=== PATIENT | male | born 1970 | race Caucasian/White ===

== ENCOUNTER → 2017-05-26 | Outpatient (CLI) | payer OTHER ==
[~2017-05-26] MED LIST: ASPI81TA28 PO; CETI10TA84 PO; LOSA50TA6 PO; METO100T14 PO
[2017-05-26 13:52] LABS: ALT/SGPT 28 U/L (12-78); BLOOD UREA NITROGEN 13 mg/dl (7-18); BUN/CREATININE RATIO 14.1 (10-20); CALCIUM 8.3 mg/dl (8.5-10.1); CARBON DIOXIDE 29 mmol/L (21-32); CHLORIDE 111 mmol/L (98-107); CREATININE 0.91 mg/dl (0.60-1.40); GLUCOSE 106 mg/dl (70-99); SODIUM 145 mmol/L (136-145)
[2017-05-26 13:55] LABS: CHOLESTEROL 204 mg/dl (0-200); CHOLESTEROL/HDL RATIO 4.9; HDL CHOLESTEROL 42 mg/dl; TRIGLYCERIDES 547 mg/dl (0-150)
== END | disposition home or self-care (01) ==
LOC: C.LABMFLN 07:52
PROVIDERS: ATTEND Family Medicine
DX: K21.9 Gastro-esophageal reflux disease without esophagitis (principal); I10 Essential (primary) hypertension; E78.5 Hyperlipidemia, unspecified